=== PATIENT | male | born 1950 | race Caucasian/White ===

== ENCOUNTER 2017-03-13 09:53 | Emergency (ER) | payer MEDICARE ==
--- NOTE | 2017-03-13 11:02 | ERNOTE ---
Lower Extremity HPI - Narrative Date of Service: 03/13/17 - General Lower Extremities Pain: ankle: left Time Seen by Provider: 03/13/17 10:51 Source: patient, RN notes reviewed Exam Limitations: no limitations - Immun/Allergies/Home Medications Immunizations: IMMUNIZATION HX Immunizations Up to Date Yes History of Influenza Vaccine Yes Hx Pneumococcal Vaccination Yes Allergies/Adverse Reactions: Allergies Allergy/AdvReac Type Severity Reaction Status Date / Time No Known Allergies Allergy Verified 03/13/17 10:16 Home Medications: HOME MEDICATIONS Metoprolol Tartrate [Lopressor] 25 mg PO BID 02/08/15 [Last Taken Unknown] metFORMIN HCL [Glucophage] 1,000 mg PO BIDWM 02/08/15 [Last Taken Unknown] Insulin Aspart [Novolog] 1,000 units SC 3XW 03/13/16 [Last Taken Unknown] Insulin Glargine,Hum.rec.anlog [Lantus] 10 units SC HS 03/13/16 [Last Taken Unknown] Clopidogrel Bisulfate [Plavix] 75 mg PO DAILY #30 tablet 03/13/17 [Last Taken Unknown] Folic Acid 0.4 mg PO DAILY 03/13/17 [Last Taken Unknown] Magnesium 30 mg PO DAILY 03/13/17 [Last Taken Unknown] Sulfamethoxazole/Trimethoprim [Bactrim Ds] 1 tab PO BID #20 tab 03/13/17 [Last Taken Unknown] - History of Present Illness Narrative: 66 y/o male ambulatory to the ED for pain, redness and increased swelling in his right lower leg and foot. He fractured his ankle in December of this year. This was repaired surgically in [place], [place]. He was there visiting his son when he fell and broke the ankle. It sounds as though he has had difficulty with weight bearing since the surgery and has been using a wheelchair. He has had some falls at home recently and believes he may have injured the ankle. He is also supposed to be taking Plavix but is currently out. Method of Injury: Reports: other - Uncertain Associated Symptoms: Denies: unable to bear weight, snapping, popping sensation , dizzy/light headedness, weakness, chest pain, vomiting/diarrhea Other Injuries: Reports: none Prior Treament: Denies: recently seen Review of Systems - Review of Systems Constitutional: Absent: recent illness, fever, chills, malaise EYE: Present: no symptoms reported ENT: Present: no symptoms reported Respiratory: Absent: shortness of breath, cough Cardiology: Present: edema. Absent: chest pain, palpitations Gastrointestinal/Abdominal: Absent: nausea, vomiting, eating less, drinking less Genitourinary: Present: no symptoms reported Musculoskeletal: Present: joint pain, joint swelling Skin: Present: change in color. Absent: rash, lesions Neurological: Absent: dizziness/light-headedness, weakness, numbness, tingling Endocrine: Present: no symptoms reported Hematologic/Lymphatic: Present: easy bruising, easy bleeding Psych: Present: no symptoms reported - Patient's Past Medical History Patient History - Medical: Arthritis, Diabetes Type 2, Kidney stone, Obesity, Osteoarthritis, Other Patient History - Cardiac/Respiratory: Myocardial Infarction, CPAP/BiPAP Home Use, Sleep Apnea Patient History - Cancer: No Hx of Cancer Patient History - Surgical Procedures: Appendectomy, Cardiac stent Patient History - Other: None - Family History Father Family History - Medical: , Diabetes Type 2 Family History - Cardiac/Respiratory: CHF, Myocardial Infarction - Social History Living Situations: home Abuse History: No History of abuse Psych History: No pertinent hx Smoking Status: Current every day smoker Alcohol Use: none Drug Use: none - Immunizations Immunizations Up to Date: Yes Hx Pneumococcal Vaccination: Yes History of Influenza Vaccine: Yes Physical Exam - Physical Exam General Appearance: Present: wd/wn, alert, no apparent distress Head Exam: Present: normal inspection Neck: Present: normal inspection, nontender, supple Respiratory: Present: no respiratory distress, normal breath sounds, no accessory muscle use, lungs clear Cardiovascular/Chest: Present: regular rate, rhythm, no murmur Peripheral Pulses: N=norm/S=strong/W=weak/B=bound/A=absent: Dorsalis-pedis (R): Weak, Dorsalis-pedis (L): Weak Extremity Exam: Present: decreased range of motion - Right ankle, pedal edema - bilateral, joint redness - Right ankle, joint swelling - Right ankle, extremity edema - severe to right lower leg, mild in right thigh Neurological Exam: Present: alert, oriented, normal mood/affect, no motor/ sensory deficits Skin Exam: Present: warm/dry, other - erythema to right foot and ankle, healing surgical wound to right lateral ankle without drainage but ankle is warm to touch ED Progress - Results and Orders Patient's Lab Results:: I have reviewed the patient's lab results. - Vital Signs Patient's Vital Signs:: I have reviewed the patient's vital signs. Vital Signs: Vital Signs 03/13/17 10:07 Temperature 36.8 C Pulse Rate 118 H Respiratory 14 Rate Blood Pressure 171/86 O2 Sat by Pulse 97 Oximetry - X-Ray X-Ray #1 X-Ray: ankle Interpretation: Reviewed by me X-ray Comments: Ankle Minimum 3 Views RT * Patient has a healing fracture of the lateral and medial malleoli as well as a healing fracture of the posterior malleolus best seen on the lateral image. Patient has a plate and screw fixation of the distal fibula and screw placement at the medial malleolus, with overall grossly intact appearance of the hardware. There is slight widening of the medial joint space on the oblique image of the ankle, which may indicate minimal lateral translation of the talus. Diffuse soft tissue swelling noted. There is also joint effusion at the tibiotalar joint. IMPRESSION: 1. Diffuse soft tissue swelling and joint effusion present. Consider cellulitis and/or septic arthritis. 2. Posttraumatic and postsurgical changes of the right ankle. 3. Minimal lateral translation of the talus suggested. Electronically signed by Todd Castillo M.D.. Todd Castillo MD Dict: 03/13/17 1119 Typed: 03/13/17 1119/ - CT/Ultrasound CT/Ultrasound Narrative: US of RLE negative for DVT - Progress/Reassessment Chief Complaint: Ankle Injury/ Pain Progress:: Improved Progress Note-Subjective: 03/13/17 12:23 Labs essentially unremarkable. Xray shows soft tissue swelling that could be cellulitis, however WBC is not elevated and patient has no signs of systemic illness. Will give IV Rocephin. US also ordered to r/o DVT. SOILA Henry contacted in orthopedics regarding follow up. He is agreeable to have the patient seen in clinic on 03/15. 03/13/17 13:50 US negative for DVT. Rx given for Augmentin. To f/u in ortho in 2 days as scheduled. Departure Clinical Impression: Cellulitis of right ankle Ankle fracture, right Qualifiers: Encounter type: sequela Qualified Code(s): S82.891S - Other fracture of right lower leg, sequela - Departure Disposition: Home Follow Up Needed Condition: Stable Instructions: Cellulitis, Adult, [id number] Additional Instructions: Keep your right foot elevated as much as possible Tylenol for pain Follow up as scheduled in orthopedics on Monday Return to ER for vomiting, fever, or other worsening symptoms Referrals: Elfego Hicks, PAC [[facility]] - 03/15/17 11:00 am Prescriptions: Clopidogrel Bisulfate [Plavix] 75 mg PO DAILY #30 tablet Sulfamethoxazole/Trimethoprim [Bactrim Ds] 1 tab PO BID #20 tab
[2017-03-13 11:40] LABS: Hematocrit 47.8 % (42.0-52.0); Hemoglobin 16.3 gm/dL (13.5-18.0); Mean Cell Volume 91.4 fl (78-100); Mean Corpuscular Hemoglobin 31.2 pg (27-31); Mean Corpuscular Hgb Conc 34.1 g/dl (32-36); Mean Platelet Volume 10.4 fl (6.0-9.5); Neutrophil # 5.6 K/mm3 (1.3-6.0); Platelet Count 237 K/mm3 (150-450); Red Blood Count 5.23 M/mm3 (4.7-6.0); Red Cell Distribution Width 15.8 % (11.5-14.0); White Blood Count 7.7 K/mm3 (4.0-10.5)
[2017-03-13 12:02] LABS: Albumin * 3.3 gm/dl (3.4-5.0); BUN/Creatinine Ratio 8.5 (9.0-21.6); Bilirubin, Total 0.4 mg/dL (0.0-1.1); Calcium * 8.8 mg/dL (7.9-10.9); Total Protein 7.4 gm/dL (6.2-8.2)
[2017-03-13] MEDS ORDERED: ACETAMINOPHEN 325 MG TABLET PO ONE (12:22)
[2017-03-13] MEDS ORDERED: ACETAMINOPHEN 325 MG TABLET ONE (12:23)
[2017-03-13 13:16] VITALS: BP 155/80
== END 2017-03-13 13:46 | disposition home or self-care (01) ==
LOC: ER 09:53
DX: L03.115 Cellulitis of right lower limb (principal); S82.891S Other fracture of right lower leg, sequela; F17.200 Nicotine dependence, unspecified, uncomplicated

== ENCOUNTER 2017-05-23 13:36 | Emergency (ER) | payer MEDICARE, OTHER ==
[2017-05-23 14:05] LABS: Urine Bilirubin Negative (NEGATIVE); Urine Blood 250 /ul (NEGATIVE); Urine Ketone 5 mg/dL (NEGATIVE); Urine Protein 100 mg/dL (NEGATIVE); Urine Specific Gravity 1.025 SP.GR. (1.005-1.030); Urine Urobilinogen Normal (NORMAL)
[2017-05-23] MEDS ORDERED: KETOROLAC TROMETHAMINE 30 MG/ML VIAL IV ONE (14:08)
[2017-05-23] MEDS ORDERED: ONDANSETRON HCL/PF 2 MG/ML VIAL IV ONE (14:08)
[2017-05-23] MEDS ORDERED: KETOROLAC TROMETHAMINE 30 MG/ML VIAL ONE (14:11)
[2017-05-23] MEDS ORDERED: ONDANSETRON HCL/PF 2 MG/ML VIAL ONE (14:11)
[2017-05-23 14:25] LABS: Urine Appearance Clear; Urine Bacteria 1+; Urine Color Yellow; Urine Nitrite Positive (NEGATIVE); Urine RBC >50 /hpf (0-5)
[2017-05-23 14:26] LABS: Hematocrit 45.9 % (42.0-52.0); Hemoglobin 15.3 gm/dL (13.5-18.0); Mean Cell Volume 93.5 fl (78-100); Mean Corpuscular Hemoglobin 31.2 pg (27-31); Mean Corpuscular Hgb Conc 33.3 g/dl (32-36); Mean Platelet Volume 10.5 fl (6.0-9.5); Platelet Count 170 K/mm3 (150-450); Red Blood Count 4.91 M/mm3 (4.7-6.0); Red Cell Distribution Width 14.8 % (11.5-14.0); White Blood Count 15.8 K/mm3 (4.0-10.5)
[2017-05-23 14:29] LABS: Total Cells Counted 100
[2017-05-23] MEDS: NORMAL SALINE 1,000 ML IV SCH ×2 (14:29→17:23)
--- NOTE | 2017-05-23 14:39 | ERNOTE ---
ER Male HPI Date of Service: 05/23/17 Stated Complaint: PAIN WHILE URINATING AND ABD PAIN ER Male: dysuria, other - Hematuria Time Seen by Provider: 05/23/17 13:54 Source: patient, RN notes reviewed Exam Limitations: no limitations Immunizations: IMMUNIZATION HX Immunizations Up to Date Yes History of Influenza Vaccine Yes Hx Pneumococcal Vaccination Yes Allergies/Adverse Reactions: Allergies No Known Allergies Allergy (Verified 05/23/17 13:54) Home Medications: HOME MEDICATIONS Metoprolol Tartrate [Lopressor] 25 mg PO BID 02/08/15 [Last Taken Unknown] Insulin Aspart [Novolog] 1,000 units SC 3XW 03/13/16 [Last Taken Unknown] Insulin Glargine,Hum.rec.anlog [Lantus] 10 units SC HS 03/13/16 [Last Taken Unknown] Folic Acid 0.4 mg PO DAILY 03/13/17 [Last Taken Unknown] Magnesium 30 mg PO DAILY 03/13/17 [Last Taken Unknown] Aspirin 81 mg PO DAILY 05/23/17 [Last Taken Unknown] Ciprofloxacin HCl [Cipro] 500 mg PO BID #28 tablet 05/23/17 [Last Taken Unknown] Ondansetron [Zofran Odt] 8 mg PO Q8H PRN #12 tab 05/23/17 [Last Taken Unknown] Phenazopyridine HCl 200 mg PO Q8H PRN #6 tablet 05/23/17 [Last Taken Unknown] - History of Present Illness Narrative: 66 year old male brought to the ED by his sister for dysuria and hematuria. He reports having blood in his urine 4 days ago that spontaneously resolved. Today , he is having pain in his right groin and scrotum. He also reports chills and vomiting. He has had a kidney stone in the past but does not believe he has ever had a UTI. He denies having an elevated blood sugar. [facility] Prior Treatment: Absent: recently seen, currently on antibiotics Review of Systems - Review of Systems Constitutional: Present: fever, chills, malaise. Absent: recent illness EYE: Present: no symptoms reported ENT: Present: no symptoms reported Respiratory: Absent: shortness of breath, cough Cardiology: Absent: chest pain, syncope Gastrointestinal/Abdominal: Present: nausea, vomiting, abdominal pain. Absent: diarrhea, constipation Genitourinary: Present: dysuria. Absent: frequency, decreased urinary output Musculoskeletal: Absent: back pain, joint pain Skin: Absent: rash, lesions Neurological: Absent: headache, dizziness/light-headedness Endocrine: Present: no symptoms reported Hematologic/Lymphatic: Present: no symptoms reported Psych: Present: no symptoms reported - Patient's Past Medical History Patient History - Medical: Arthritis, Diabetes Type 2, Kidney stone, Obesity, Osteoarthritis, Other Patient History - Cardiac/Respiratory: Myocardial Infarction, CPAP/BiPAP Home Use, Sleep Apnea Patient History - Cancer: No Hx of Cancer Patient History - Surgical Procedures: Appendectomy, Cardiac stent Patient History - Other: None - Family History Father Family History - Medical: , Diabetes Type 2 Family History - Cardiac/Respiratory: CHF, Myocardial Infarction - Social History Living Situations: spouse Abuse History: No History of abuse Psych History: No pertinent hx Smoking Status: Current every day smoker Alcohol Use: none Drug Use: none - Immunizations Immunizations Up to Date: Yes Hx Pneumococcal Vaccination: Yes History of Influenza Vaccine: Yes Physical Exam - Physical Exam General Appearance: Present: wd/wn, alert, mild distress, other - Disheveled Neck: Present: normal inspection, nontender, supple Respiratory: Present: no respiratory distress, normal breath sounds, no accessory muscle use, lungs clear Cardiovascular/Chest: Present: regular rate, rhythm, no murmur, normal peripheral pulses Gastrointestinal/Abdominal: Present: normal bowel sounds, soft, tenderness - suprapubic, distended - obese. Absent: guarding, mass, hernia Back Exam: Present: normal inspection, no CVA tenderness Neurological Exam: Present: alert, oriented, normal mood/affect, no motor/ sensory deficits Skin Exam: Present: normal color, warm/dry ED Progress - Results and Orders Patient's Lab Results:: I have reviewed the patient's lab results. - Vital Signs Patient's Vital Signs:: I have reviewed the patient's vital signs. Vital Signs: Vital Signs 05/23/17 13:50 Temperature 38.2 C H Pulse Rate 127 H Respiratory 16 Rate Blood Pressure 150/83 O2 Sat by Pulse 95 Oximetry - CT/Ultrasound CT/Ultrasound Narrative: CT stone protocol: IMPRESSION: 1. Bilateral perinephric fat stranding with some mild dilatation of the ureters. No identifiable obstruction. Circumferential bladder wall thickening and perivesicular inflammatory change suggesting infectious or inflammatory process. Correlate for cystitis with pyelonephritis. Punctate nonobstructing left intrarenal calculus of doubtful clinical significance. 2. For the remainder of findings please see above. Electronically signed by Luis Lewis M.D.. - Progress/Reassessment Chief Complaint: Urinary Tract Problems Progress:: Improved Departure Clinical Impression: UTI (urinary tract infection) Qualifiers: Urinary tract infection type: acute cystitis Hematuria presence: with hematuria Qualified Code(s): N30.01 - Acute cystitis with hematuria - Departure Disposition: Home Follow Up Needed Condition: Stable Instructions: Urinary Tract Infection, Adult, [id number] Additional Instructions: Drink plenty of water Continue your routine medications Return [facility] if [facility] worsen Have your urine rechecked after you finish the antibiotic Prescriptions: Ciprofloxacin HCl [Cipro] 500 mg PO BID #28 tablet Ondansetron [Zofran Odt] 8 mg PO Q8H PRN #12 tab PRN Reason: Nausea Phenazopyridine HCl 200 mg PO Q8H PRN #6 tablet PRN Reason: Pain
[2017-05-23 14:44] LABS: Atypical (Reactive) Lymph 3 % (0-2); Band 2 % (0-2.0); Lymphocyte 2 % (20-51); Monocyte 6 % (0-9); Neutrophil 87 % (42-75); Neutrophil # 13.7 K/mm3 (1.3-6.0); Platelet Estimate Normal (NORMAL); RBC Morphology Normal (NORMAL)
[2017-05-23 14:51] LABS: Albumin * 3.5 gm/dl (3.4-5.0); Anion Gap 19.2 mmol/L (6.8-13.8); Bilirubin, Total 1.2 mg/dL (0.0-1.1); Ca. Corrected For Albumin 8.7 mg/dL (8.4-10.2); Calcium * 8.6 mg/dL (7.9-10.9); Carbon Dioxide 21.8 mmol/L (24-32.6); Total Protein 7.4 gm/dL (6.2-8.2)
[2017-05-23] MEDS ORDERED: MORPHINE SULFATE 2 MG/ML DISP.SYRIN IV ONE (15:17)
[2017-05-23] MEDS ORDERED: MORPHINE SULFATE 2 MG/ML DISP.SYRIN ONE (15:51)
[2017-05-23 18:15] VITALS: BP 168/87
== END 2017-05-23 17:54 | disposition home or self-care (01) ==
LOC: ER 13:36
DX: N30.01 Acute cystitis with hematuria (principal); Z87.442 Personal history of urinary calculi; I25.2 Old myocardial infarction; Z95.5 Presence of coronary angioplasty implant and graft; F17.200 Nicotine dependence, unspecified, uncomplicated; E11.9 Type 2 diabetes mellitus without complications; Z79.4 Long term (current) use of insulin
CPT/HCPCS: 36415; 74176; 80053; 81001; 83605; 85007; 85025; 87040; 87077; 87086; 87186; 96365; 96375; 99283; J2405